=== PATIENT | male | born 1965 | race Two or more races ===

== ENCOUNTER 2020-04-06 06:00 | Day surgery (SDC) | payer OTHER ==
[~2020-04-06 06:00] MED LIST: MICARDIS HCT 81 EAC1 PO; NORVASC5 MG PO; PRILOSEC OTC20 MG PO; SINGULAIR10 MG PO
== END 2020-04-06 11:30 | disposition home or self-care (01) ==
LOC: CIR.AMB 06:00 → CIR LITO 08:00 → CIR.AMB 11:30
PROVIDERS: ATTEND Orthopaedic Surgery
DX: S46.121A Laceration of muscle, fascia and tendon of long head of biceps, right arm, initial encounter (principal); Z20.828 Contact with and (suspected) exposure to other viral communicable diseases